=== PATIENT | female | born 1985 | race Caucasian/White ===

== ENCOUNTER → 2018-11-18 | Outpatient (CLI) | payer BC | LOC: COL.RAD 13:21 | DX: R59.0 Localized enlarged lymph nodes (principal) ==

== ENCOUNTER 2021-05-06 02:14 | Inpatient (IN) | payer BC ==
[~2021-05-06] VITALS: Ht 170.2 cm; Wt 85.0 kg
[2021-05-06] VITALS (28 sets, daily range): BP systolic 94–144; BP diastolic 57–88; PULSE 64–104; TEMP 97.6–98.4
[2021-05-06 04:01] LABS: BASO % 0.2 % (0.0-2.0); EOS # 0.2 K/mm3 (0.0-0.7); EOS % 1.3 % (0-4.0); GRAN # 9.2 K/mm3 (1.4-6.5); GRAN % 74.6 % (42.2-75.2); HEMOGLOBIN 11.9 g/dl (12.5-16.0); LYMPH # 1.9 K/mm3 (1.2-3.4); LYMPH % 15.4 % (20.0-51.0); MEAN CELL VOLUME 93 fl (80.0-100.0); MEAN CORPUSCULAR HEMOGLOBIN 30 pg (27.0-31.0); MEAN CORPUSCULAR HGB CONC 33 g/dl (33.0-37.0); MONO % 7.7 % (1.7-9.3); PLATELET COUNT 251 K/mm3 (130-400); RED BLOOD COUNT 3.92 M/mm3 (4.10-5.30); REDCELL DISTRIBUTION WIDTH-CV 12.5 % (11.5-14.5)
[2021-05-06 04:09] LABS: HEMATOCRIT 36.4 % (37.0-47.0)
[2021-05-06] MEDS ORDERED: PRENATAL TABLET PO (04:35)
[2021-05-06] MEDS ORDERED: CALCIUM 600 PLU1 TAB PO (04:35)
[2021-05-06 09:41] LABS: TRICYCLIC ANTIDEPRESS URINE NEGATIVE
[2021-05-07 00:15] VITALS: BP 81/48; PULSE 75; TEMP 98.6
[2021-05-07 04:10] VITALS: BP 86/54; PULSE 71; TEMP 98
[2021-05-07 06:40] VITALS: BP 124/95; PULSE 61; TEMP 98.2
[2021-05-07] MEDS ORDERED: IBU600 MG PO (08:37)
[2021-05-07 12:19] VITALS: BP 134/84; PULSE 88
[2021-05-07 16:29] VITALS: BP 108/67; PULSE 74; TEMP 98
[2021-05-07 19:00] VITALS: BP 88/52; PULSE 75; TEMP 98.8
[2021-05-08 08:00] VITALS: BP 106/73; PULSE 61; TEMP 97.8
== END 2021-05-08 11:40 | disposition home or self-care (01) | DRG 807 ==
LOC: LDRO 02:14 → LDR 02:50 → OB 05-07
PROVIDERS: Obstetrics & Gynecology; ADMIT Obstetrics & Gynecology
PROC: 10E0XZZ Delivery of Products of Conception, External Approach (ICD-10-PCS; principal; 2021-05-06)
PROC: 0HQ9XZZ Repair Perineum Skin, External Approach (ICD-10-PCS; 2021-05-06)
DX: O24.420 Gestational diabetes mellitus in childbirth, diet controlled (principal); Z37.0 Single live birth; O77.0 Labor and delivery complicated by meconium in amniotic fluid; O70.0 First degree perineal laceration during delivery; Z3A.38 38 weeks gestation of pregnancy
CPT/HCPCS: J1200; J2590; J7120

== ENCOUNTER → 2021-05-20 | Outpatient (CLI) | payer BC ==
[~2021-05-20] MED LIST: CALCIUM 600 PLU1 TAB PO; IBU600 MG PO; PRENATAL TABLET PO
--- NOTE | 2021-05-20 14:00 | NUR ---
Pt, Etelvina Del Angel, presents for outpatient consult with 2 week old baby boy, Danny Del Angel, with concerns about milk supply. She is accompanied by her spouse, Gerardo Del Angel. Danny was born on [birth year] and weighed 7#1.2oz (3210 gms). Today he weighs 7#12.2oz (3520 gms). Lowest recalled weight was 6#9oz. Pt states Danny was not acting satisfied after and they have been supplementing 2-3oz formula or EBM after each feeding. Pt pumps 10-30ml ~ 4 times daily. Danny latches easily, pt handles baby and breast well. Breasts palpate soft. Initially Danny has frequent swallows but they only last a minute or two per breast, the remainder of the feeding is passive. After Danny has a gain of 12 gms. He is supplemented about 2oz formula and is content. LC evaluates Danny's mouth and suck, he has a high palate, but tongue does not appear restricted. LC reviews causes of low milk supply but unable to identify a likely cause other than wide spacing of the breasts which may be indicative of underdeveloped breast tissue. POC: Pt agrees to continue breast/supplement/pumping each feeding, will implement power pumping 1-3 times daily and herbal supplements. F/U: Pt will monitor milk supply production and follow up by telephone next week, and then determine consult appt. Questions invited and answered, handouts provided.
== END ==
LOC: LAC 09:59
DX: Z39.1 Encounter for care and examination of lactating mother (principal); Z71.89 Other specified counseling